=== PATIENT | female | born 1950 | race Caucasian/White ===

== ENCOUNTER 2020-09-28 06:33 | Day surgery (SDC) | payer OTHER ==
[~2020-09-28 06:33] MED LIST: ADULT ASPIRIN R81 MG PO; ATACAND HCT 321 EAC1 PO; CANDESARTAN-HC1 EACH PO; ETODOLAC PO; FOLIC AC PO; METFORM PO; METHOTREXATE PO; PLAQUENIL PO; TOPROL XL50 M1 PO; ZIRTEC PO
== END 2020-09-28 19:50 | disposition home or self-care (01) ==
LOC: CIR.AMB 06:33
PROVIDERS: ATTEND Orthopaedic Surgery Hand Surgery
DX: M19.232 Secondary osteoarthritis, left wrist (principal); M65.842 Other synovitis and tenosynovitis, left hand; Z20.828 Contact with and (suspected) exposure to other viral communicable diseases

== ENCOUNTER 2020-11-30 06:40 | Day surgery (SDC) | payer OTHER ==
[~2020-11-30 06:40] MED LIST changes: +ATORVASTATIN CA20 MG PO; +CLONIDINE PO
== END 2020-11-30 19:40 | disposition home or self-care (01) ==
LOC: CIR.AMB 06:40
PROVIDERS: ATTEND Orthopaedic Surgery Hand Surgery
DX: M19.232 Secondary osteoarthritis, left wrist (principal); M66.242 Spontaneous rupture of extensor tendons, left hand; Z20.822 Contact with and (suspected) exposure to COVID-19